=== PATIENT | male | born 1970 | race Two or more races ===

== ENCOUNTER 2017-04-02 00:01 | Emergency (ER) | payer SELFPAY ==
--- NOTE | 2017-04-02 00:27 | NUR ---
A/OX3 ABLE TO LEAVE
--- NOTE | 2017-04-02 00:28 | NUR ---
A/OX3 ABLE TO MAKE DECISIONS FOR OWN CARE. WALKING WITH STEADY AND NORMAL GAIT. NO CONFUSION NOTED. STATED "I AM OKAY TO GO HOME, I AM FINE"
== END 2017-04-02 00:29 | disposition home or self-care (01) ==
LOC: ER 00:03
DX: Z53.21 Procedure and treatment not carried out due to patient leaving prior to being seen by health care provider (principal)